=== PATIENT | female | born 1960 | race African-American/Black ===

== ENCOUNTER 2018-01-19 06:10 | Day surgery (SDC) | payer MEDICARE ==
[2018-01-18 13:19] VITALS: BMI 49.4
--- NOTE | 2018-01-19 05:20 | HP ---
SHORT STAY HISTORY AND PHYSICAL DATE OF ADMISSION: 01/19/2018 HISTORY OF PRESENT ILLNESS: This is a 57-year-old female who comes for a colonoscopy because of hist ory of colon polyp. At the present time, Ms. Amena Valdez has no specific GI symptoms. Her bow el movements are fairly regular. No abdominal pain, no nausea, or vomiting. ALLERGIES: PENICILLIN, LATEX. MEDICAL ILLNESSES: 1. Obesity. 2. Hypertension. 3. Hyperlipidemia. 4. Fibromyalgia. 5. Insomnia. 6. Colon polyp. PHYSICAL EXAMINATION: GENERAL: Patient is obese, appears comfortable. VITAL SIGNS: Pulse is 70, blood pressure 130/80. HEENT: Conjunctivae clear. CARDIOVASCULAR SYSTEM: First and second heart sounds normal. LUNGS: Clear to auscultation. ABDOMEN: Soft to palpate. No organomegaly. No tenderness. No masses. ADMITTING DIAGNOSIS: A 57-year-old female with history of colon polyp. PLAN: Colonoscopy.
[2018-01-19] MEDS ORDERED: Acetaminophen 325 MG TAB ONE (09:58)
--- NOTE | 2018-01-19 11:04 | OP ---
DATE OF PROCEDURE: 01/19/2018 SURGEON: Soto Juárez M.D. OPERATIVE PROCEDURE: Colonoscopy with biopsy. PREOPERATIVE DIAGNOSIS: A 57-year-old female with history of colon polyp, undergoing colonoscopy. POSTOPERATIVE DIAGNOSES: 1. Small sessile polyp over the cecum. 2. Hemorrhoids. PROCEDURE IN DETAIL: The patient was placed on her left lateral position and was given sedation by A nesthesia Department. A rectal exam was done before the scope was advanced into the rectum. No lesi ons felt on rectal exam. A Pentax video colonoscope was introduced into the rectum and advanced all the way into the cecum. The prep was good. Mucosa appeared normal throughout the colon. The append ical orifice, ileocecal valve, no pathology seen. Over the cecum the patient was found to have a sma ll sessile polyp. The polyp was removed with biopsy forceps. The ascending colon, hepatic flexure, transverse colon, splenic flexure, descending colon, and sigmoid colon, no lesions seen. Rectum reve aled hemorrhoids. DISCHARGE PLANNING: A 57-year-old female who came in for colonoscopy because of history of colon martin yp. She underwent colonoscopy with biopsy. DISCHARGE RECOMMENDATIONS: 1. The patient was advised to call me if she develops abdominal pain or hematochezia. 2. To come back to clinic in 2 weeks.
[2018-01-19] MEDS ORDERED: Lidocaine 1% PF 5 ML VIAL ONE (14:42)
[2018-01-19] MEDS ORDERED: PROPOFOL 200 MG/20 ML VIAL ONE (14:42)
== END 2018-01-19 10:26 | disposition home or self-care (01) ==
LOC: SDC 06:10
PROVIDERS: ATTEND Internal Medicine Gastroenterology
PROC: 0DBH8ZX Excision of Cecum, Via Natural or Artificial Opening Endoscopic, Diagnostic (ICD-10-PCS; principal; 2018-01-19)
DX: Z12.11 Encounter for screening for malignant neoplasm of colon (principal); K63.5 Polyp of colon; K64.9 Unspecified hemorrhoids; E78.5 Hyperlipidemia, unspecified; I10 Essential (primary) hypertension; M79.7 Fibromyalgia; G47.00 Insomnia, unspecified; E66.9 Obesity, unspecified; Z86.010 Personal history of colon polyps; Z88.0 Allergy status to penicillin; Z91.040 Latex allergy status; Z79.899 Other long term (current) drug therapy; Z68.42 Body mass index [BMI] 45.0-49.9, adult
CPT/HCPCS: 88305; J2001; J2704

== ENCOUNTER 2018-04-08 21:15 | Emergency (ER) | payer MEDICARE ==
[2018-04-08] MEDS ORDERED: Lidocaine 1% PF 5 ML VIAL ONE (22:32)
[2018-04-08] MEDS ORDERED: HYDROcodone/Acetaminophen 10/325 mg Tablet ONE (22:32)
[2018-04-08] MEDS ORDERED: Ketorolac Tromethamine 30 MG/ML VIAL ONE (22:32)
--- NOTE | 2018-04-08 22:54 | RAD ---
RADIOGRAPH LUMBAR SPINE 3 VIEWS: 04/08/18 HISTORY: 57-year-old female with persistent post traumatic low back pain. FINDINGS: Vertebral body heights are maintained. There is no evidence of fracture. There are degenerative disc changes and degenerative facet changes. IMPRESSION: 1) No evidence of compression fracture. 2) Lumbar spondylosis jn [] POS: [facility]
== END 2018-04-08 23:35 | disposition home or self-care (01) ==
LOC: ERS 21:15
DX: M54.41 Lumbago with sciatica, right side (principal); M54.42 Lumbago with sciatica, left side; E78.5 Hyperlipidemia, unspecified; F32.9 Major depressive disorder, single episode, unspecified
CPT/HCPCS: 72100; 96372; J1885; J2001

== ENCOUNTER 2019-04-19 11:23 | Emergency (ER) | payer MEDICARE ==
[~2019-04-19 11:23] MED LIST: ISOVUE-370 76%-LOCM 1 ML ONE
[2019-04-19 12:00] LABS: #Basophils 0.1 thou/uL (0.0-0.2); #Eosinphils 0.1 thou/uL (0.0-0.7); #Lymphocytes 1.8 thou/uL (1.20-3.40); #Monocytes 0.5 thou/uL (0.11-0.59); #Neutrophils 3.6 thou/uL (1.40-6.50); %Basophils 1.3 % (0.0-1.0); %Eosinophils 2.1 % (0.0-10.0); %Lymphocytes 29.7 % (21.0-51.0); %Monocytes 8.8 % (0.0-10.0); %Neutrophils 58.1 % (42.0-75.0); Hemoglobin 11.4 g/dL (12.0-16.0); Mean Corpuscular Hemoglobin 30.2 pg (27.0-31.0); Mean Corpuscular Volume 91.4 fL (78.0-98.0); Mean Platelet Volume 7.2 fL (7.4-10.4); Platelet Count 414 thou/uL (130-400); RBC Distribution Width 12.3 % (11.5-14.5); Red Blood Cell (RBC) Count 3.78 mill/uL (4.20-5.40); White Blood Cell (WBC) Count 6.2 thou/uL (4.8-10.8)
[2019-04-19 12:19] LABS: ALT (SGPT) 15 U/L (8-55); AST (SGOT) 10 U/L (5-34); Albumin 3.6 g/dL (3.5-5.0); Alkaline Phosphatase 97 U/L (40-110); Anion Gap 11 mmol/L (10-20); BUN (Urea Nitrogen) 15 mg/dL (9.8-20.1); Bilirubin, Total 0.2 mg/dL (0.2-1.2); CK (CPK) 38 U/L (29-168); Calc. Creatinine Clearance 0 mL/min (70-130); Carbon Dioxide 28 mmol/L (22-29); Chloride 99 mmol/L (98-107); Estimated GFR-MDRD Greater than 90; Globulin 3.8 g/dL (2.4-3.5); Glucose 89 mg/dL (70-105); Potassium 3.2 mmol/L (3.5-5.1); Protein, Total 7.4 g/dL (6.0-8.3); Sodium 135 mmol/L (136-145)
--- NOTE | 2019-04-19 13:11 | RAD ---
PORTABLE CHEST: Date: 04/19/19 HISTORY: Dyspnea. FINDINGS: The heart size appears slightly enlarged. Some of this could be related to portable technique. Medias tinal structures appear unremarkable. Lungs are clear of any infiltrates. There is some minimal blunt ing to the right costophrenic angle, but this was present on the prior exam. IMPRESSION: Borderline heart size. POS: [facility]
--- NOTE | 2019-04-19 15:23 | CT ---
Exam: CT angiogram of the chest HISTORY: Recent breast reduction. Shortness of breath. Chest pain. COMPARISON: None TECHNIQUE: CT angiogram of the chest is performed in the axial plane. Three-dimensional reformatted i mages are submitted for interpretation FINDINGS: Mediastinum: No mass, lymphadenopathy or hematoma. HEART: Normal size. No significant pericardial fluid. Aorta: No aneurysm or dissection Upper solid abdominal viscera: No abnormality enhancement. Trachea and central bronchi: Patent Pleural spaces: No effusion Lung parenchyma: No masses or consolidation. Pneumothorax: None Osseous structures: No lytic or blastic lesions Soft tissue structures: Expected postoperative changes in the left and right breast with small pocket s of subcutaneous air. Pulmonary arteries: Adequate contrast opacification pulmonary arterial system to the level of segment al arteries. No filling defect to suggest pulmonary embolism IMPRESSION: 1. No evidence of pulmonary artery embolism to the level of segmental arteries.
[2019-04-19] MEDS ORDERED: HYDROcodone/Acetaminophen 10/325 mg Tablet ONE (15:34)
--- NOTE | 2019-04-23 03:05 | EKG ---
Test Reason : Blood Pressure : / mmHG Vent. Rate : 063 BPM Atrial Rate : 063 BPM P-R Int : 168 ms QRS Dur : 090 ms QT Int : 416 ms P-R-T Axes : 051 037 053 degrees QTc Int : 425 ms Sinus rhythm with Premature atrial complexes Low voltage QRS Cannot rule out Anterior infarct , age undetermined Abnormal ECG Confirmed by NHAN ALEJO D.O. ([id number]), senior technical editor ARNAUD CONNOLLY ([id number]) on 04/23/2019 3:05:13 AM Referred By: Confirmed By:NHAN ALEJO D.O.
== END 2019-04-19 16:19 | disposition home or self-care (01) ==
LOC: ERS 11:23
DX: R07.89 Other chest pain (principal); M79.7 Fibromyalgia; E78.5 Hyperlipidemia, unspecified; E78.00 Pure hypercholesterolemia, unspecified; F32.9 Major depressive disorder, single episode, unspecified; Z79.899 Other long term (current) drug therapy
CPT/HCPCS: 36415; 71045; 71275; 80053; 82550; 84484; 85025; 93005; Q9966

== ENCOUNTER 2019-10-02 13:52 | Outpatient (CLI) | payer MEDICARE ==
--- NOTE | 2019-10-02 15:18 | MRI ---
MRI CERVICAL SPINE: INDICATION: Neck pain. FINDINGS: The cervical vertebrae maintain height and alignment. There are mild to moderate degenerative change s with anterior spurring from the cervical vertebrae. Vertebral body signal is normally maintained. Posterior disk bulge and spondylosis at multiple levels. Findings are as described below. C2-3: Mild disk bulge and spondylosis. Anterior subarachnoid space is preserved with no central can al or foraminal stenosis. C3-4: Posterior disk bulge with spondylosis effaces the anterior subarachnoid space. No evidence of cord impingement. No foraminal stenosis or central canal stenosis. C4-5: Disk bulge and spondylosis efface the anterior subarachnoid space. No evidence of cord imping ement. No central canal or foraminal stenosis. C5-6: Disk bulge and spondylosis flatten the thecal sac and efface the anterior subarachnoid space. No cord impingement. Mild left foraminal encroachment from uncinate hypertrophy. No central canal stenosis. C6-7: Disk bulge and spondylosis efface the anterior subarachnoid space. Findings are more pronounc ed to the left. There is left foraminal encroachment. No central canal stenosis. Cervical cord signal is normally maintained. IMPRESSION: Posterior disk bulge and spondylitic changes are seen at multiple levels. No cord impingement or constance tral canal stenosis identified. POS: [facility]
--- NOTE | 2019-10-02 15:46 | MRI ---
MRI of lumbar spine noncontrast HISTORY: Low back pain. Radiculopathy. Herniated nucleus pulposus. FINDINGS: The conus medullaris has normal appearance. Vertebral body heights are maintained. Heteroge neous bone marrow signal of the bone marrow consistent with discogenic endplate changes. There is desiccation of the lowest 4 intervertebral discs. T12-L1: Mild osteophytosis. Central canal and neural foramina are patent. L1-2: Minimal disc space narrowing. Mild posterior disc bulge. Osteophytosis of the facets. Thecal sa c is patent. Mild right foraminal stenosis. L2-3: Minimal degenerative spondylolisthesis. Posterior disc bulge. Circumferential degenerative sandhu ges. Thecal sac is patent. Moderate bilateral foraminal stenoses. L3-4: Disc space narrowing and minimal degenerative spondylolisthesis. Mild posterior disc bulge and circumferential degenerative changes. Mild stenosis of the central canal. Moderate to severe bilateral foraminal stenoses. L4-5: Degenerative changes of the facets with fluid. Posterior ligamentous thickening. Thecal sac is patent. Moderate bilateral foraminal stenoses. L5-S1: Mild posterior disc bulge. Thecal sac is patent. Osteophytosis of the facets. Mild right and s evere left foraminal stenoses. IMPRESSION : Prominent multilevel degenerative changes throughout the lumbar spine as detailed above. Foraminal st enoses most severe on the left at the lumbosacral junction and bilaterally at the L3-4 level. Clinical correlation regarding the left L5 and each L3 dermatome is required.
== END 2019-10-02 13:53 | disposition home or self-care (01) ==
LOC: BICMRI 13:52
PROVIDERS: ATTEND Neurological Surgery
DX: M51.26 Other intervertebral disc displacement, lumbar region (principal); M54.2 Cervicalgia; M47.816 Spondylosis without myelopathy or radiculopathy, lumbar region; M48.061 Spinal stenosis, lumbar region without neurogenic claudication; M48.07 Spinal stenosis, lumbosacral region; M47.812 Spondylosis without myelopathy or radiculopathy, cervical region; M50.81 Other cervical disc disorders, high cervical region
CPT/HCPCS: 72141; 72148

== ENCOUNTER 2019-12-20 13:50 | Outpatient (CLI) | payer MEDICARE ==
--- NOTE | 2019-12-20 14:43 | MMO ---
Bilateral MAMMO Bilat Diag [facility]. CLINICAL HISTORY: Patient is 59 years old and is seen for screening. The patient has the following family history of breast cancer: maternal grandmother, malignant (generic). The patient has no personal history of cancer. The patient has a history of Breast reduction in 2019. VIEWS: The views performed were: bilateral craniocaudal with tomosynthesis; bilateral mediolateral oblique with tomosynthesis; and bilateral mediolateral with tomosynthesis. FILMS COMPARED: The present examination has been compared to prior imaging studies performed at [facility] on 02/18/2012, 08/07/2014, 11/06/2015 and 11/17/2016. This study has been interpreted with the assistance of computer-aided detection. MAMMOGRAM FINDINGS: The breasts are almost entirely fat. There is a fat containing mass with circumscribed margins seen in the sub-areolar region of the left breast. The mammographic finding appears to represent fat necrosis along her reduction mammoplasty pedicle. There are no suspicious masses, suspicious calcifications, or new areas of architectural distortion. IMPRESSION: THERE IS NO MAMMOGRAPHIC EVIDENCE OF MALIGNANCY. A ROUTINE FOLLOW-UP MAMMOGRAM IN 1 YEAR IS RECOMMENDED. THE RESULTS OF THIS EXAM WERE SENT TO THE PATIENT. ACR BI-RADS Category 2 - Benign finding MAMMOGRAPHY NOTE: 1. A negative mammogram report should not delay a biopsy if a dominant of clinically suspicious mass is present. 2. Approximately 10% to 15% of breast cancers are not detected by mammography. 3. Adenosis and dense breasts may obscure an underlying neoplasm. Reported by: RASHMI COUCH MD Electonically Signed: [id number]
== END 2019-12-20 13:51 | disposition home or self-care (01) ==
LOC: BICMAMMO 13:50
PROVIDERS: ATTEND Family Medicine
DX: N63.20 Unspecified lump in the left breast, unspecified quadrant (principal); N60.19 Diffuse cystic mastopathy of unspecified breast
CPT/HCPCS: 77066; G0279

== ENCOUNTER 2022-05-07 14:26 | Outpatient (CLI) | payer OTHER, MEDICAID | END 2022-05-07 14:27 | disposition home or self-care (01) | LOC: BICMAMMO 14:26 | PROVIDERS: ATTEND Family Medicine | DX: Z12.31 Encounter for screening mammogram for malignant neoplasm of breast (principal); Z98.890 Other specified postprocedural states; Z80.3 Family history of malignant neoplasm of breast | CPT/HCPCS: 77063; 77067 ==